=== PATIENT | female | born 1965 | race Hispanic/Latino ===

== ENCOUNTER 2019-05-06 16:26 | Emergency (ER) | payer OTHER ==
[2019-05-06] MEDS ORDERED: NAPROXEN 500 MG TABLET ONE (16:41)
== END 2019-05-06 17:22 | disposition home or self-care (01) ==
LOC: EDH 16:26
DX: S86.911A Strain of unspecified muscle(s) and tendon(s) at lower leg level, right leg, initial encounter (principal); I10 Essential (primary) hypertension; E11.9 Type 2 diabetes mellitus without complications; E78.00 Pure hypercholesterolemia, unspecified; X50.9XXA Other and unspecified overexertion or strenuous movements or postures, initial encounter; Y93.89 Activity, other specified; Y92.89 Other specified places as the place of occurrence of the external cause; Y99.8 Other external cause status
CPT/HCPCS: 99282